=== PATIENT | female | born 1965 | race Caucasian/White ===

== ENCOUNTER 2017-08-18 12:39 | Emergency (ER) | payer BC ==
[2017-08-18 13:29] VITALS: BP 122/72
[2017-08-18] MEDS ORDERED: Albuterol/Ipratropium NEB.SOL* Albuterol 2.5 MG/Ipratropium 0.5 MG 3 ML INH ONE (13:35)
--- NOTE | 2017-08-18 13:52 | UC ---
Respiratory Complaint HPI - HPI Summary HPI Summary: Pt c/o chest and nasal congestion, wheezing and generalized fatigue and malaise X 2 days. - History of Current Complaint Chief Complaint: UCGeneralIllness Stated Complaint: SINUSES/COUGH Time Seen by Provider: 08/18/17 13:25 Hx Obtained From: Patient Hx Last Menstrual Period: Uterine Ablasion 05/2010 ?: No Onset/Duration: Gradual Onset, Lasting Days, Still Present Timing: Constant Severity Initially: Mild Severity Currently: Moderate Pain Intensity: 0 Character: Cough: Nonproductive Aggravating Factors: Allergens, Exertion, Deep Breaths, Recumbent Position Alleviating Factors: Nothing Associated Signs And Symptoms: Positive: Chills, Wheezing, URI, Nasal Congestion - Risk Factors Pulmonary Embolism Risk Factors: Smoking Cardiac Risk Factors: Hypertension, Smoking Pseudomonas Risk Factors: Negative Tuberculosis Risk Factors: Smoking - Allergies/Home Medications Allergies/Adverse Reactions: Allergies Allergy/AdvReac Type Severity Reaction Status Date / Time Sulfa (Sulfonamide Allergy Hives Verified 08/18/17 13:16 Antibiotics) prednisone AdvReac Flushed/Red Verified 08/18/17 13:16 Face Home Medications: Home Medications Atorvastatin* [Lipitor 10 MG*] 10 mg PO DAILY 08/18/17 [History Confirmed ] Biotin/Keratin [Biotin Plus Keratin Tablet] 1 tab PO DAILY 08/18/17 [History Confirmed 08/18/17] Cholecalciferol TAB* [Vitamin D TAB*] 1 tab PO DAILY 08/18/17 [History Confirmed 08/18/17] Ibuprofen TAB* [Advil TAB*] 400 mg PO Q6HR PRN 08/18/17 [History Confirmed 08/18] Levothyroxine TAB* [Synthorid 112 MCG TAB*] 112 mcg PO DAILY 08/18/17 [History Confirmed 08/18/17] Magnesium 1 tab PO DAILY 08/18/17 [History Confirmed 08/18/17] Multivitamin [Multivitamins] 1 tab PO DAILY 08/18/17 [History Confirmed 08/18/17 ] PARoxetine HCL TAB* [Paxil TAB*] 40 mg PO DAILY 08/18/17 [History Confirmed ] Primidone TAB(*) [Mysoline TAB(*)] 2 tab PO DAILY 08/18/17 [History Confirmed ] Primidone TAB(*) [Mysoline TAB(*)] 3 tab PO BEDTIME 08/18/17 [History Confirmed 08/18/17] Sinus Decongestant 1 tab PO Q4HR PRN 08/18/17 [History] PMH/Surg Hx/FS Hx/Imm Hx Previously Healthy: Yes Respiratory History: Asthma - Surgical History Surgical History: Yes Surgery Procedure, Year, and Place: Uterine Ablasion; 1991; Bilateral Carpal Tunnel release; T&A; Bilateral Knee Arthroscopy - Family History Known Family History: Positive: Cardiac Disease - Social History Occupation: Employed Full-time Lives: With Family Alcohol Use: Rare Substance Use Type: None Smoking Status (MU): Heavy Every Day Tobacco Smoker Amount Used/How Often: 1 ppd Have You Smoked in the Last Year: Yes Household Exposure Type: Cigarettes Review of Systems Constitutional: Fever, Chills, Fatigue Skin: Negative Eyes: Negative ENT: Sinus Congestion Respiratory: Shortness Of Breath - with exertion, Cough Cardiovascular: Negative Gastrointestinal: Negative Genitourinary: Negative Motor: Negative Neurovascular: Negative Musculoskeletal: Negative Neurological: Negative Psychological: Negative Is Patient Immunocompromised?: No All Other Systems Reviewed And Are Negative: Yes Physical Exam Triage Information Reviewed: Yes Appearance: Ill-Appearing Vital Signs: Initial Vital Signs Temp 97.7 F 08/18/17 13:21 Pulse 83 08/18/17 13:21 Resp 22 08/18/17 13:21 BP 122/72 08/18/17 13:21 Pulse Ox 99 08/18/17 13:21 Vital Signs Reviewed: Yes Eye Exam: Normal ENT: Positive: Nasal congestion Dental Exam: Normal Neck exam: Normal Respiratory: Positive: Decreased breath sounds, Wheezing Cardiovascular Exam: Normal Musculoskeletal Exam: Normal Neurological Exam: Normal Psychological Exam: Normal Skin Exam: Normal Diagnostic Evaluation - Laboratory O2 Sat by Pulse Oximetry: 99 Respiratory Course/Dx - Differential Dx/Diagnosis Differential Diagnosis/HQI/PQRI: Asthma, Bronchitis, Exacerbation Of COPD Provider Diagnoses: bronchitis. exacerbation of asthma Discharge - Sign-Out/Discharge Documenting (check all that apply): Discharge - Discharge Plan Condition: Stable Disposition: HOME Prescriptions: Albuterol HFA INHALER* [Ventolin HFA Inhaler*] 1 - 2 puff INH Q4H PRN #1 mdi PRN Reason: Sob/Wheezing Albuterol/Ipratropium NEB.TONYA* [Duoneb (Albuterol 2.5 MG/Ipratropium 0.5 MG)] 1 neb INH Q4H PRN #1 box PRN Reason: Wheezing Azithromycin TAB* [Zithromax TAB (Z-EMELY) 250 mg #6 tabs] 2 tab PO .TODAY, THEN 1 DAILY #1 emely Benzonatate CAP* [Tessalon 100 MG CAP*] 100 mg PO Q8H PRN #30 cap PRN Reason: Cough Patient Education Materials: Acute Bronchitis (ED), Wheezing (ED) Referrals: CHRISTI Cotto [Primary Care Provider] - If Needed - Billing Disposition and Condition Condition: STABLE Disposition: HOME
== END 2017-08-18 14:04 | disposition home or self-care (01) ==
LOC: UCCORT 12:39
DX: J45.901 Unspecified asthma with (acute) exacerbation (principal); Z88.2 Allergy status to sulfonamides; Z88.8 Allergy status to other drugs, medicaments and biological substances; F17.210 Nicotine dependence, cigarettes, uncomplicated
CPT/HCPCS: 99212; A9270-GY; G0463

== ENCOUNTER 2018-08-22 08:20 | Emergency (ER) | payer BC ==
[2018-08-22 08:53] VITALS: BP 105/62
--- NOTE | 2018-08-22 09:18 | UC ---
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 Immediate ecchymosis, erythema, and localized swelling. Noticed warmth three days ago and started using black salve. ~3mm open area with serosanguinous draninge. No fever /chills." -no fevers or chills. no purulent dc. she had an immediate big bruise that ga sreslevd. 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 - History of Current Complaint Chief Complaint: UCSkin Time Seen by Provider: 08/22/18 09:06 Stated Complaint: RT LEG COMP Hx Last Menstrual Period: Uterine Ablasion 05/2010 Pain Intensity: 0 - Allergy/Home Medications Allergies/Adverse Reactions: Allergies Allergy/AdvReac Type Severity Reaction Status Date / Time prednisone AdvReac See Comment Verified 08/22/18 08:45 Sulfa (Sulfonamide AdvReac See Comment Verified 08/22/18 08:45 Antibiotics) Home Medications: Home Medications Amantadine CAP* [Symmetrel CAP*] 100 mg PO BID 08/22/18 [History Confirmed 08/22] PMH/Surg Hx/FS Hx/Imm Hx Previously Healthy: Yes - Surgical History Surgical History: Yes Surgery Procedure, Year, and Place: Uterine Ablasion; 1991; Bilateral Carpal Tunnel release; T&A; Bilateral Knee Arthroscopy - Family History Known Family History: Positive: Cardiac Disease - Social History Alcohol Use: Rare Substance Use Type: None Smoking Status (MU): Heavy Every Day Tobacco Smoker Amount Used/How Often: 1 PPD Length of Time of Smoking/Using Tobacco: Since Age 11 Have You Smoked in the Last Year: Yes Household Exposure Type: Cigarettes Review of Systems All Other Systems Reviewed And Are Negative: Yes Constitutional: Positive: Negative Skin: Positive: Other - see above Eyes: Positive: Negative ENT: Positive: Negative Respiratory: Positive: Negative Cardiovascular: Positive: Negative Gastrointestinal: Positive: Negative Genitourinary: Positive: Negative Motor: Positive: Negative Neurovascular: Positive: Negative Musculoskeletal: Positive: Negative Neurological: Positive: Negative Psychological: Positive: Negative Is Patient Immunocompromised?: No Physical Exam Triage Information Reviewed: Yes Appearance: Well-Appearing, No Pain Distress, Well-Nourished - very pleasant Vital Signs: Initial Vital Signs Temp 98 F 08/22/18 08:41 Pulse 74 08/22/18 08:41 Resp 18 08/22/18 08:41 BP 105/62 08/22/18 08:41 Pulse Ox 98 08/22/18 08:41 Vital Signs Reviewed: Yes ENT Exam: Normal Neck exam: Normal Respiratory Exam: Normal Respiratory: Positive: Lungs clear Cardiovascular Exam: Normal Cardiovascular: Positive: RRR Abdominal Exam: Normal Abdomen Description: Positive: Nontender Musculoskeletal Exam: Normal Neurological Exam: Normal Psychological Exam: Normal Skin: Positive: Other - right enterior lower leg w/ baseball sized erythema w/ central break in skin w/ slight bloody drainage. slightly warm to touch. no streaks. shiny, tense, tender. Course/Dx - Course Course Of Treatment: Rt leg resulting traumatic cellulitis -treat w/ keflex 500mgs TID x 10d. #30 -requetss diflcuan bc she always gets yeast infection - Differential Diagnoses - Skin Complaint Differential Diagnoses: Cellulitis, Other - hematoma - Diagnoses Provider Diagnosis: Cellulitis of right leg Discharge - Sign-Out/Discharge Documenting (check all that apply): Patient Departure All imaging exams completed and their final reports reviewed: No Studies - Discharge Plan Condition: Stable Disposition: HOME Prescriptions: Cephalexin CAP* [Keflex CAP*] 500 mg PO TID #30 cap Fluconazole 150 MG TAB* [Diflucan 150 MG TAB*] 150 mg PO ONCE #2 tablet Patient Education Materials: Cellulitis (ED) Referrals: Leslie Chauhan PA [Primary Care Provider] - 1 Week Additional Instructions: Make sure to take a probiotic daily while on antibiotics to help prevent a potential complication of antibiotic use called c diff. Some well known brands that can be found OTC are florastor, align and [employer]. Make sure to complete the entire prescription unless advised otherwise by your health care provider - Billing Disposition and Condition Condition: STABLE Disposition: Home
== END 2018-08-22 09:29 | disposition home or self-care (01) ==
LOC: UCCORT 08:20
DX: L03.115 Cellulitis of right lower limb (principal); F17.210 Nicotine dependence, cigarettes, uncomplicated; Z88.2 Allergy status to sulfonamides; Z88.8 Allergy status to other drugs, medicaments and biological substances
CPT/HCPCS: 99212; G0463

== ENCOUNTER 2018-11-10 09:11 | Emergency (ER) | payer BC ==
--- OUTSIDE RECORDS SUMMARY | 2018-11-10 09:27 | XMS REPORT | Continuity of Care Document ---
:1965 External Reference #:[id number] Author Name JosseCricket Care Team Providers Name Role Phone Triston Davis MD Primary Care Physician Unavailable Payers Date Identification Numbers Payment Provider Subscriber Policy Number: [id number] [employer] Amada Camacho PayID: [id number] [address] [address] [place] [address] Problems Active Problems Provider Date Essential tremor Love Aguilar M.D. 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 [employer] Tobacco Use Start: Unknown Current Cigarette Smoker 1 Pack Daily Smoking Status Reviewed: 11/05/18 Current Cigarette Smoker 1 Pack Daily ETOH Use Rarely consumes alcohol Tobacco Use Start: Unknown Heavy tobacco smoker (more than 10 cigarettes/day) Exercise Type/Frequency Exercises sporadically Allergies, Adverse Reactions, Alerts Active Allergies Reaction Severity Comments Date Sulfa Antibiotics Urticaria Mild 09/05/2015 Prednisone Flushing and Hot face- sensitive 09/09/2016 Medications Active Medications SIG Qnty Indications Ordering Date Provider Carbidopa-Levodopa 1 tab po at 8, 1 90tabs G20 Cole SJennifer 09/03/2018 tab po at 12 pmJustin M.D. 25-100mg Tablets and 1 tab at 4 pm Paroxetine HCL 1 po qd Unknown 30mg Tablets Proair HFA 2 puffs prn Unknown 108(90Base) mcg/Act Aerosol Advair Diskus 1 puff bid prn Unknown 250-50mcg/Dose Aerosol Albuterol Sulfate bid a day as Unknown needed 1.25mg/3ML Nebulizer Singulair 1 by mouth every Unknown 10mg Tablets day Oxybutynin Chloride ER 1 po everyday Leslie Chauhan, PA-C 10mg Tablets ER 24HR Levothyroxine Sodium 1 by mouth every Unknown day 100mcg Solution Rec Biotin 5000 once daily Unknown 5mg Capsules Magnesium once a day Unknown History Medications Amantadine HCL 1 every morning 60caps Jeremy Wilks, 02/10/2018 - 100mg and 1 at noon 11/04/2018 Capsules Rasagiline Mesylate 1 by mouth 30tabs G20 Cole Shannon 01/06/2018 - 1mg every day Don Anderson 02/03/2018 Tablets Mysoline 2 tabs by mouth 180tabs [id number] Love Ceron 09/05/2015 - 50mg Tablets in the morning Don Aguilar 01/05/2018 and 3 tabs by mouth in the evening.. Montelukast Sodium 1 po qd Unknown - 10mg 09/08/2016 Tablets Levothyroxine Sodium 1 po qd Unknown - 11/05/2018 112mcg Tablets Magnesium 1 by mouth Unknown - 250mg Tablets every day 01/05/2018 Vitamin D3 High 1 by mouth Unknown - Potency every day 01/05/2018 1000Unit Capsules Omeprazole 1 by mouth Unknown - 20mg Capsules daily prn 04/03/2017 Ibuprofen 4 po every 6 Unknown - 200mg Tablets hrs for the 09/08/2016 last couple of days Vitamin B-12 2 by mouth Unknown - 500mcg every day 09/08/2016 Tablets Sub Multivitamin Adult 1 by mouth Unknown - every day 11/05/2017 Tablets Tolterodine Tartrate 1 po every Ritesh, - ER other day MD Katarzyna 02/23/2018 4mg Caps ER 24HR Mucinex D Sinus 1 tab po bid as Unknown - Tablet needed 01/05/2018 Biotin 1 tab daily otc Unknown - 5000mcg Capsules 08/26/2018 Vital Signs Date Vital Result Comment 11/05/2018 12:59pm Height 63 inches 5'3" Weight 217.00 lb Heart Rate 82 /min BP Systolic 112 mmHg BP Diastolic 70 mmHg BMI (Body Mass Index) 38.4 kg/m2 09/03/2018 10:50am Height 63 inches 5'3" Weight 217.00 lb BP Systolic Sitting 118 mmHg BP Diastolic Sitting 76 mmHg Respiratory Rate 16 /min Pain Level 0 BMI (Body Mass Index) 38.4 kg/m2 02/24/2018 11:45am Height 63 inches 5'3" Weight 228.00 lb Heart Rate 76 /min BP Systolic 116 mmHg BP Diastolic 76 mmHg Respiratory Rate 16 /min BMI (Body Mass Index) 40.4 kg/m2 01/06/2018 11:23am Height 63 inches 5'3" Weight 234.00 lb Heart Rate 84 /min BP Systolic 120 mmHg BP Diastolic 86 mmHg Respiratory Rate 20 /min BMI (Body Mass Index) 41.4 kg/m2 11/06/2017 10:55am Height 63 inches 5'3" Weight 242.00 lb last friday,refused weight today Heart Rate 80 /min BP Systolic 106 mmHg BP Diastolic 74 mmHg Respiratory Rate 16 /min Pain Level 0 O2 % BldC Oximetry 97 % BMI (Body Mass Index) 42.9 kg/m2 04/04/2017 3:10pm Height 63 inches 5'3" Weight 245.00 lb Heart Rate 74 /min BP Systolic Sitting 120 mmHg BP Diastolic Sitting 88 mmHg Respiratory Rate 16 /min Pain Level 0 O2 % BldC Oximetry 97 % BMI (Body Mass Index) 43.4 kg/m2 09/09/2016 10:00am Height 63 inches 5'3" Heart Rate 84 /min BP Systolic 112 mmHg BP Diastolic 80 mmHg Respiratory Rate 20 /min Pain Level 0 02/28/2016 11:41am Height 63 inches 5'3" Weight 250.00 lb Heart Rate 87 /min BP Systolic Sitting 100 mmHg BP Diastolic Sitting 74 mmHg O2 % BldC Oximetry 93 % BMI (Body Mass Index) 44.3 kg/m2 09/05/2015 9:01am Height 63 inches 5'3" Weight 253.00 lb Heart Rate 76 /min BP Systolic Sitting 110 mmHg BP Diastolic Sitting 70 mmHg Respiratory Rate 17 /min BMI (Body Mass Index) 44.8 kg/m2 Encounters Type Date Location Provider Dx Diagnosis Office Visit 09/03/2018 [place]Vinnie Shannon G20 Parkinson's disease 10:45a [facility] Office Visit 02/24/2018 [facility] [facility] Cole SJennifer G20 Parkinson's disease 11:30a Services Of [facility] Office Visit 01/06/2018 [place] [facility] Galvan SJennifer G20 Parkinson's disease 11:30a Services Of Teresa nAderson M.D. 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 [facility] Anderson movement disorder, [facility] unspecified [facility]or 3:15p [facility] Of Don Aguilar [facility] Office Visit 09/09/2016 [place]/Vinnie Ceron G25.0 Essential tremor 9:45a [facility] Of Don Aguilar [facility] Office Visit 02/28/2016 [place]/Vinnie Ceron G25.0 Essential tremor 11:30a [facility] Of Don Aguilar [facility] Office Visit 09/05/2015 [facility] Love Ceron G25.0 Essential tremor 9:00a [facility] Of [facility] Don Aguilar Plan of Treatment Future Appointment(s):01/07/2019 8:30 am - Giuliano Bowling NP at [facility]11/05/2018 - Giuliano Bowling NPG20 Parkinson's diseaseFollow up:2 - 3 MONTHSRecommendations:Take Oxybutynin at night instead. Take the Carbidopa/Levodopa before meals at 8 am, 12 pm , and 4 pm. Give us a call in 1 -2 weeks and let us know if this regimen is working.
[2018-11-10 09:43] VITALS: BP 108/74
--- NOTE | 2018-11-10 10:11 | UC ---
Back Pain HPI - HPI Summary HPI Summary: left mid back pain x 2 days no known injury , pain is sever, 8 out of 10 , radiating to left flank area worse with movement, coughing , better with rest. no fever, no chills, no n/v/d/c, no urinary sx - History of Current Complaint Chief Complaint: UCBackPain Stated Complaint: LOWER BACK PAIN Time Seen by Provider: 11/10/18 09:54 Hx Obtained From: Patient Hx Last Menstrual Period: UTERINE ABLATION 2010 ?: No Onset/Duration: Gradual Onset, Lasting Days - 2, Still Present Timing: Constant Severity Initially: Moderate Severity Currently: Severe Pain Intensity: 8 Back Pain: Is Discrete @ - left mid back Character: Aching, Throbbing, Spasmodic Aggravating Factor(s): Movement, Lifting, Bending, Walking, Cough Alleviating Factor(s): Rest, Heat Associated Signs And Symptoms: Negative: Swelling, Redness, Bruising, Fever, Weakness, Numbness, Tingling, Abdominal Pain, Flank Pain, Weight Loss, Pain with Weight Bearing - Allergies/Home Medications Allergies/Adverse Reactions: Allergies Allergy/AdvReac Type Severity Reaction Status Date / Time prednisone AdvReac See Comment Verified 11/10/18 09:31 Sulfa (Sulfonamide AdvReac See Comment Verified 11/10/18 09:31 Antibiotics) Home Medications: Home Medications Carbadopa/Levodopa 1 tab PO TID 11/10/18 [History] Levothyroxine TAB* [Synthroid TAB*] 100 mcg PO DAILY 11/10/18 [History Confirmed 11/10/18] Oxybutynin TAB* [Ditropan TAB*] 5 mg PO DAILY 11/10/18 [History Confirmed ] PMH/Surg Hx/FS Hx/Imm Hx - Additional Past Medical History Additional PMH: Depression, Dyslipidemia (resolved), Parkinson's [ End ] Endocrine History: Hypothyroidism Respiratory History: COPD - Surgical History Surgical History: Yes Surgery Procedure, Year, and Place: Uterine Ablasion; 1991; Bilateral Carpal Tunnel release; T&A; Bilateral Knee Arthroscopy - Family History Known Family History: Positive: Cardiac Disease - Social History Alcohol Use: Rare Substance Use Type: None Smoking Status (MU): Heavy Every Day Tobacco Smoker Amount Used/How Often: 1 PPD Length of Time of Smoking/Using Tobacco: Since Age 11 Have You Smoked in the Last Year: Yes Household Exposure Type: Cigarettes Review of Systems All Other Systems Reviewed And Are Negative: Yes Constitutional: Positive: Negative Skin: Positive: Negative Eyes: Positive: Negative ENT: Positive: Negative Respiratory: Positive: Negative Is Patient Immunocompromised?: No Physical Exam Triage Information Reviewed: Yes Appearance: Well-Appearing, No Pain Distress, Well-Nourished, Pain Distress Vital Signs: Initial Vital Signs Temp 97.2 F 11/10/18 09:37 Pulse 73 11/10/18 09:37 Resp 18 11/10/18 09:37 BP 108/74 11/10/18 09:37 Pulse Ox 97 11/10/18 09:37 Vital Signs Reviewed: Yes Eye Exam: Normal Eyes: Positive: Conjunctiva Clear ENT: Positive: Normal ENT inspection, Hearing grossly normal, Pharynx normal Neck: Positive: Supple, Nontender, No Lymphadenopathy Respiratory: Positive: Chest non-tender, Lungs clear, Normal breath sounds Cardiovascular: Positive: RRR, No Murmur, Pulses Normal Abdominal Exam: Normal Abdomen Description: Positive: Nontender, Soft. Negative: CVA Tenderness (R), CVA Tenderness (L), Distended, Guarding Bowel Sounds: Positive: Present Musculoskeletal: Positive: Other: - left lower back : + tenderness, no swelling , pain with flexion and extension / rotation Skin Exam: Normal Back Pain Course/Dx - Differential Dx/Diagnosis Provider Diagnosis: Left-sided thoracic back pain Discharge - Sign-Out/Discharge Documenting (check all that apply): Patient Departure All imaging exams completed and their final reports reviewed: No Studies - Discharge Plan Condition: Stable Disposition: HOME Prescriptions: Cyclobenzaprine TAB* [Flexeril 10 MG TAB*] 10 mg PO BID PRN #20 tab PRN Reason: Pain Naproxen [Naproxen 500 mg tab] 500 mg PO BID #20 tablet. Patient Education Materials: Thoracic Back Strain (ED) Referrals: Leslie Chauhan PA [Primary Care Provider] - 5 Days - Billing Disposition and Condition Condition: STABLE Disposition: Home
== END 2018-11-10 10:08 | disposition home or self-care (01) ==
LOC: UCCORT 09:11
DX: M54.6 Pain in thoracic spine (principal); G20 Parkinson's disease; E03.9 Hypothyroidism, unspecified; F17.210 Nicotine dependence, cigarettes, uncomplicated
CPT/HCPCS: 81003; 99212; G0463